=== PATIENT | female | born 1970 | race Hispanic/Latino ===

== ENCOUNTER 2020-02-16 01:01 | Emergency (ER) | payer SELFPAY ==
[~2020-02-16] VITALS: Ht 152.4 cm; Wt 44.5 kg
[~2020-02-16 01:01] MED LIST: CIPRO500 MG OR; CIPROFLOXACN500 MG PO; COUMADIN2 MG PO; DIGOXIN0.25 MG PO; DILT-XR120 MG PO; DILTIAZEM60 MG PO; FERR SULFATE325 MG PO; HYDROCO/APAP1 TA9 PO; LORTAB 10 PO; LORTAB5 PO; MECLIZINE25 MG PO; METOPROL TAR25 MG PO; NAPROSYN375 MG PO; NAPROSYN500 MG OR; NAPROXEN250 MG PO; NEXIUM40 MG PO; NO; NO HOME MEDS; NO MEDS; PANTOPRAZOLE SO40 MG PO; PERCOCET 5/325M1 TAB OR; PREVACID30 M2 PO; PROMETHAZINE12.5 MG PO; TRAMADOL HCL50 MG PO; ZOFRAN ODT4 MG PO; ZOFRAN ODT8 MG PO
[2020-02-16 01:56] LABS: URINE BILIRUBIN - DIPSTICK NEGATIVE (NEGATIVE); URINE BLOOD DIPSTICK NEGATIVE (NEGATIVE); URINE COLOR YELLOW; URINE GLUCOSE - DIPSTICK NEGATIVE (NEGATIVE); URINE KETONE NEGATIVE (NEGATIVE); URINE LEUK ESTERASE NEGATIVE (NEGATIVE); URINE NITRITE - DIPSTICK NEGATIVE (Negative); URINE PROTEIN - DIPSTICK NEGATIVE (NEG-TRACE); URINE SPECIFIC GRAVITY <=1.005; URINE UROBILINOGEN - DIPSTICK 0.2 E.U./dL (0.2)
[2020-02-16 02:05] LABS: HEMATOCRIT 38.5 % (37.0-47.0); HEMOGLOBIN 11.9 g/dl (12.0-16.0); IMMATURE GRANULOCYTES 0.4 % (0.0-5.0); MEAN CORPUSCULAR HGB 26.3 pG CALC (26.0-32.0); MEAN CORPUSCULAR HGB CONC 30.9 g/dL CAL (32.0-36.0); NEUT# 2.35 thou/uL (2.00-7.15); RED BLOOD COUNT 4.53 mill/uL (4.20-5.60)
[2020-02-16 02:31] LABS: INTERNATIONAL NORMALIZED RATIO 1.8 RATIO (0.7-1.3); PROTHROMBIN TIME 17.4 SECONDS (9.0-12.5)
[2020-02-16 02:36] LABS: ALBUMIN 4.2 g/dL (3.2-5.0); ALKALINE PHOSPHATASE 119 u/l (38-126); AMYLASE 168 u/l (30-110); ANION GAP 14 (6-22 (CALC)); BILIRUBIN, TOTAL 0.5 mg/dL (0.0-1.4); BUN 19 mg/dL (7-17); BUN/CREATININE RATIO 27 (12-20 (CALC)); CARBON DIOXIDE 21 mmol/l (22-30); CHLORIDE 107 mmol/l (95-108); CREATININE 0.7 mg/dL (0.5-1.0); GFR > 60 ML/MIN (>=60 (CALC)); GFR FOR AFR.AMER. > 60 ML/MIN (>=60 (CALC)); LIPASE 122 u/l (23-300); POTASSIUM 3.7 mmol/l (3.5-5.1); SGOT/AST 59 u/l (14-36); SODIUM 138 mmol/l (137-146); TOTAL PROTEIN 8.2 g/dL (6.3-8.2)
[2020-02-16 02:39] LABS: DIGOXIN 1.2 ng/mL (0.8-2.0)
[2020-02-16] MEDS ORDERED: PHENERGAN25 MG RE (02:58)
[2020-02-16 03:28] VITALS: BP 105/52
== END 2020-02-16 03:28 | disposition home or self-care (01) | DRG 392 ==
LOC: ED 01:01
PROVIDERS: Family Medicine
DX: K52.9 Noninfective gastroenteritis and colitis, unspecified (principal)